=== PATIENT | male | born 1965 | race African-American/Black ===

== ENCOUNTER 2019-01-14 14:39 | Inpatient (IN) | payer MEDICAID ==
[~2019-01-14] VITALS: Ht 182.9 cm; Wt 171.5 kg
[2019-01-14 15:13] LABS: CHLORIDE 104 mEq/L (98-107)
[2019-01-14 15:14] LABS: HEMATOCRIT. 34.3 % (42.0-52.0); HEMOGLOBIN. 10.8 g/dL (14.0-18.0); MEAN CORPUSCULAR HEMOGLOBIN 26.6 pg (28.0-32.0); MEAN CORPUSCULAR VOLUME 84.1 fL (80.0-94.0); MEAN PLATELET VOLUME 8.8 fl (7.4-10.4); PLATELET 233 x1000/uL (130-400); RED BLOOD CELL COUNT 4.07 mill/uL (4.7-6.1); RED CELL DISTRIBUTION WIDTH 17.2 % (11.6-14.6)
[2019-01-14 15:16] LABS: PROTHROMBIN TIME 10.7 sec (9.6-11.0)
[2019-01-14 15:17] LABS: ETHANOL BLOOD < 10 mg/dL
[2019-01-14 15:20] LABS: LDL CHOLESTEROL 48 mg/dL (5-100)
[2019-01-14 15:43] LABS: BG BASE EXCESS -3.8 mmol/L (-2.0-2.0); BG CARBOXYHEMOGLOBIN 0.1 % (0.5-1.5); BG DEOXYHEMOGLOBIN 1.3 % (0.0-5.0); BG FRACTION INSPIRED OXYGEN 100; BG HCO3 ACT 24.7 mmol/L (22.0-26.0); BG METHEMOGLOBIN 0.2 % (0.0-1.5); BG OXYGEN SATURATION 98.7 % (92.0-98.5); BG OXYHEMOGLOBIN 98.4 % (94.0-97.0); BG PH 7.211 (7.350-7.450); BG PO2 164.8 mmHg (75.0-100.0); BG SAMPLE SITE RIGHT BRACHIAL; BG VENT MODE MASK - NRB
[2019-01-14 16:00] LABS: PLATELET ESTIMATE NORMAL
[2019-01-14] MEDS ORDERED: MORPHINE SULFATE 4 MG/ML CPJ (NOT FOR IM USE) IV ONE (16:30)
[2019-01-14 17:42] LABS: CLARITY URINE CLEAR (CLEAR); COLOR URINE YELLOW (YELLOW); KETONES URINE NEGATIVE (NEGATIVE); LEUKOCYTE ESTERASE URINE NEGATIVE (NEGATIVE); NITRITE URINE NEGATIVE (NEGATIVE); OCCULT BLOOD URINE NEGATIVE (NEGATIVE); PROTEIN URINE 1+ (NEGATIVE); SPECIFIC GRAVITY URINE 1.019 (1.005-1.030); UROBILINOGEN URINE 0.2 E.U./dL (0.2-1.0)
[2019-01-14 17:53] LABS: *COCAINE SCREEN URINE NEGATIVE (NEGATIVE); METHADONE URINE SCREEN NEGATIVE (NEGATIVE); OPIATES URINE SCREEN PRESUMTIVE POSITIVE (NEGATIVE); PHENCYCLIDINE URINE SCREEN NEGATIVE (NEGATIVE)
[2019-01-14 17:54] LABS: *AMPHETAMINES SCREEN URINE NEGATIVE (NEGATIVE); *BARBITURATES SCREEN URINE NEGATIVE (NEGATIVE); *BENZODIAZEPINES SCREEN URINE NEGATIVE (NEGATIVE); CANNABINOID URINE SCREEN NEGATIVE (NEGATIVE)
[2019-01-14] MEDS ORDERED: SODIUM CHLORIDE 0.9% 1000ML BAG (SEPSIS BOLUS) IV ONE (18:45)
[2019-01-14] MEDS ORDERED: LEVOFLOXACIN 750MG PREMIX 150 ML IV ONE (18:45)
[2019-01-14 19:02] LABS: BG BASE EXCESS 0.6 mmol/L (-2.0-2.0); BG CARBOXYHEMOGLOBIN 0.1 % (0.5-1.5); BG DEOXYHEMOGLOBIN 4.1 % (0.0-5.0); BG FRACTION INSPIRED OXYGEN 32; BG HCO3 ACT 28.7 mmol/L (22.0-26.0); BG METHEMOGLOBIN 0.1 % (0.0-1.5); BG OXYGEN SATURATION 95.9 % (92.0-98.5); BG OXYHEMOGLOBIN 95.7 % (94.0-97.0); BG PCO2 65.5 mmHg (35.0-45.0); BG PO2 89.3 mmHg (75.0-100.0); BG SAMPLE SITE RIGHT BRACHIAL; BG VENT MODE NASAL CANNULA
[2019-01-14] MEDS ORDERED: FUROSEMIDE 40MG/4ML VIAL IV ONE (19:30)
[2019-01-14] MEDS ORDERED: ASPIRIN 81MG TABLET PO ONE (19:30)
[2019-01-14] MEDS ORDERED: LACTULOSE 20G/30ML UDC PO ONE (19:30)
[2019-01-14] MEDS ORDERED: NITROGLYCERIN OINT 1GM/INCH UDPKT TD ONE (19:30)
[2019-01-14] MEDS ORDERED: KETOROLAC 15MG/ML VIAL IV ONE (21:15)
[2019-01-14] MEDS ORDERED: HYDRALAZINE 20MG/ML VIAL IV PRN (22:30)
[2019-01-14] MEDS ORDERED: GUAIFENESIN 200MG/10ML SUGAR FREE UDC PO PRN (22:30)
[2019-01-14] MEDS ORDERED: ACETAMINOPHEN 325MG TABLET PO PRN (22:30)
[2019-01-14] MEDS ORDERED: ONDANSETRON HCL 4MG/2ML INJ IV PRN (22:30)
[2019-01-14] MEDS ORDERED: MAGNESIUM/ALUMINUM HYDROXIDE/SIMETHICONE 30ML UDC PO PRN (22:30)
[2019-01-14] MEDS ORDERED: DOCUSATE SODIUM 100MG CAPSULE PO PRN (22:30)
[2019-01-14] MEDS ORDERED: LORAZEPAM 2MG/ML CPJ IV PRN (22:30)
[2019-01-14] MEDS ORDERED: ENOXAPARIN 40MG/0.4ML SYR SUBCUT SCH (22:30)
[2019-01-14] MEDS ORDERED: IPRATROPIUM/ALBUTEROL 0.5-3(2.5)MG/3ML NEB INH PRN (22:30)
[2019-01-14] MEDS: CLONIDINE 0.1MG TABLET PO PRN (23:28)
[2019-01-14] MEDS: HYDROMORPHONE HCL/PF 2MG/ML CPJ IV PRN (23:29)
[2019-01-15] VITALS (17 sets, daily range): BP systolic 87–175; BP diastolic 47–101
[2019-01-15] MEDS ORDERED: GABAPENTIN 400MG CAPSULE PO SCH
[2019-01-15] MEDS: ARIPIPRAZOLE 10MG TABLET PO SCH ×2 (00:31→20:36)
[2019-01-15] MEDS: QUETIAPINE FUMARATE 100MG TABLET PO SCH ×2 (00:32→20:36)
[2019-01-15] MEDS: GABAPENTIN 400MG CAPSULE PO SCH ×3 (06:18→17:32)
[2019-01-15] MEDS: SODIUM CHLORIDE 0.9% INJ 3ML FLUSH IVF SCH ×3 (06:20→20:36)
[2019-01-15 06:38] LABS: BASOPHILS % 0.2 % (0.0-2.0); EOSINOPHILS % 1.4 % (0.0-5.0); HEMATOCRIT. 29.3 % (42.0-52.0); HEMOGLOBIN. 9.4 g/dL (14.0-18.0); LYMPHOCYTES % 16.5 % (20.0-50.0); MEAN CORPUSCULAR HEMOGLOBIN 26.4 pg (28.0-32.0); MEAN CORPUSCULAR VOLUME 82.1 fL (80.0-94.0); MEAN PLATELET VOLUME 8.6 fl (7.4-10.4); MONOCYTES % 11.6 % (2.0-8.0); NEUTROPHILS % 70.3 % (40.0-76.0); PLATELET 203 x1000/uL (130-400); RED BLOOD CELL COUNT 3.57 mill/uL (4.7-6.1); RED CELL DISTRIBUTION WIDTH 16.9 % (11.6-14.6)
[2019-01-15] MEDS ORDERED: BISA10SU62 RC (06:54)
[2019-01-15] MEDS ORDERED: MULT-1146 PO (06:54)
[2019-01-15] MEDS ORDERED: HJ10 IJ (06:54)
[2019-01-15] MEDS ORDERED: FAMO40TA7 PO (06:54)
[2019-01-15] MEDS ORDERED: GABA-533 PO (06:54)
[2019-01-15] MEDS ORDERED: ASCO-339 PO (06:54)
[2019-01-15] MEDS ORDERED: MOM PO (06:54)
[2019-01-15] MEDS ORDERED: ARIP10TA16 PO (06:54)
[2019-01-15] MEDS ORDERED: METH500T PO (06:54)
[2019-01-15] MEDS ORDERED: CRAN400C PO (06:54)
[2019-01-15] MEDS ORDERED: OXYC-105 PO (06:54)
[2019-01-15] MEDS ORDERED: DOCU-150 PO (06:54)
[2019-01-15] MEDS ORDERED: OXYC-523 PO (06:54)
[2019-01-15] MEDS ORDERED: FERR325T6 PO (06:54)
[2019-01-15] MEDS ORDERED: DIPH25TA24 PO (06:54)
[2019-01-15] MEDS ORDERED: QUET400T PO (06:54)
[2019-01-15] MEDS ORDERED: IBUP-2030 PO (06:54)
[2019-01-15 07:28] LABS: CHLORIDE 106 mEq/L (98-107)
[2019-01-15 07:39] LABS: CREATINE KINASE 484 IU/L (39-308)
[2019-01-15 07:45] LABS: CREATINE KINASE MB FRACTION 3.4 ng/mL (0.5-3.6)
[2019-01-15] MEDS: HYDROMORPHONE HCL/PF 2MG/ML CPJ IV PRN (08:54)
[2019-01-15] MEDS: PIPERACILLIN/TAZ 3.375G PREMIX 50 ML IV SCH ×3 (09:00→20:35)
[2019-01-15] MEDS: ASPIRIN 81MG EC TABLET PO SCH (09:16)
[2019-01-15] MEDS: ENOXAPARIN 40MG/0.4ML SYR SUBCUT SCH ×2 (09:18→20:35)
[2019-01-15 10:03] LABS: T4 FREE 0.95 ng/dL (0.76-1.46)
[2019-01-15] MEDS: HYDROCODONE/ACETAMINOPHEN 10/325MG TABLET PO PRN ×2 (13:52→18:36)
[2019-01-15 16:16] LABS: CREATINE KINASE MB FRACTION 2.7 ng/mL (0.5-3.6)
[2019-01-15] MEDS: NYSTATIN POWDER 15GM TOP SCH ×2 (17:00→17:32)
[2019-01-15 17:04] LABS: BG BASE EXCESS 2.6 mmol/L (-2.0-2.0); BG CARBOXYHEMOGLOBIN 0.3 % (0.5-1.5); BG DEOXYHEMOGLOBIN 3.7 % (0.0-5.0); BG FRACTION INSPIRED OXYGEN 28; BG HCO3 ACT 29.2 mmol/L (22.0-26.0); BG METHEMOGLOBIN 0.2 % (0.0-1.5); BG OXYGEN SATURATION 96.3 % (92.0-98.5); BG OXYHEMOGLOBIN 95.8 % (94.0-97.0); BG PCO2 55.3 mmHg (35.0-45.0); BG PO2 91.7 mmHg (75.0-100.0); BG SAMPLE SITE LEFT RADIAL; BG TOTAL HEMOGLOBIN 10.3 g/dL (12.0-18.0); BG VENT MODE NASAL CANNULA
[2019-01-15] MEDS ORDERED: LIDOCAINE HCL/EPINEPHRINE 1%-EPI 1:100,000 50 ML VIAL INFIL ONE (20:00)
[2019-01-15] MEDS: FAMOTIDINE 20MG TABLET PO SCH (20:36)
[2019-01-15] MEDS ORDERED: LEVOFLOXACIN 500MG PREMIX 100 ML IV SCH (21:00)
[2019-01-16] VITALS (7 sets, daily range): BP systolic 115–173; BP diastolic 68–111
[2019-01-16] MEDS: GABAPENTIN 400MG CAPSULE PO SCH ×4 (00:17→17:58)
[2019-01-16] MEDS: HYDROCODONE/ACETAMINOPHEN 10/325MG TABLET PO PRN ×4 (00:30→17:59)
[2019-01-16] MEDS: PIPERACILLIN/TAZ 3.375G PREMIX 50 ML IV SCH ×4 (03:06→20:44)
[2019-01-16] MEDS: SODIUM CHLORIDE 0.9% INJ 3ML FLUSH IVF SCH ×3 (05:32→21:48)
[2019-01-16 07:22] LABS: BASOPHILS % 0.6 % (0.0-2.0); EOSINOPHILS % 5.3 % (0.0-5.0); HEMATOCRIT. 30.2 % (42.0-52.0); HEMOGLOBIN. 9.7 g/dL (14.0-18.0); LYMPHOCYTES % 31.3 % (20.0-50.0); MEAN CORPUSCULAR HEMOGLOBIN 26.7 pg (28.0-32.0); MEAN CORPUSCULAR VOLUME 82.8 fL (80.0-94.0); MEAN PLATELET VOLUME 8.4 fl (7.4-10.4); MONOCYTES % 12.2 % (2.0-8.0); NEUTROPHILS % 50.6 % (40.0-76.0); PLATELET 143 x1000/uL (130-400); RED BLOOD CELL COUNT 3.65 mill/uL (4.7-6.1); RED CELL DISTRIBUTION WIDTH 16.8 % (11.6-14.6)
[2019-01-16 07:44] LABS: CHLORIDE 106 mEq/L (98-107)
[2019-01-16] MEDS ORDERED: HYDROMORPHONE HCL/PF 2MG/ML CPJ IV NR (08:00)
[2019-01-16] MEDS: ENOXAPARIN 40MG/0.4ML SYR SUBCUT SCH ×2 (08:48→20:43)
[2019-01-16] MEDS: ASPIRIN 81MG EC TABLET PO SCH (08:48)
[2019-01-16] MEDS: CLONIDINE 0.1MG TABLET PO PRN (08:48)
[2019-01-16] MEDS: NYSTATIN POWDER 15GM TOP SCH ×3 (08:50→17:59)
[2019-01-16] MEDS: HYDROMORPHONE HCL/PF 2MG/ML CPJ IV PRN ×2 (13:11→20:44)
[2019-01-16] MEDS: FAMOTIDINE 20MG TABLET PO SCH (20:44)
[2019-01-16] MEDS: QUETIAPINE FUMARATE 100MG TABLET PO SCH (21:47)
[2019-01-16] MEDS: ARIPIPRAZOLE 10MG TABLET PO SCH (21:48)
[2019-01-17] VITALS (7 sets, daily range): BP systolic 116–175; BP diastolic 74–109
[2019-01-17] MEDS: GABAPENTIN 400MG CAPSULE PO SCH ×4 (00:22→17:56)
[2019-01-17] MEDS: PIPERACILLIN/TAZ 3.375G PREMIX 50 ML IV SCH ×4 (03:38→20:21)
[2019-01-17] MEDS: SODIUM CHLORIDE 0.9% INJ 3ML FLUSH IVF SCH ×3 (06:26→21:37)
[2019-01-17 07:07] LABS: HEMOGLOBIN. 9.8 g/dL (14.0-18.0); MEAN CORPUSCULAR HEMOGLOBIN 26.6 pg (28.0-32.0); MEAN CORPUSCULAR VOLUME 81.7 fL (80.0-94.0); MEAN PLATELET VOLUME 8.6 fl (7.4-10.4); PLATELET 196 x1000/uL (130-400); RED BLOOD CELL COUNT 3.67 mill/uL (4.7-6.1); RED CELL DISTRIBUTION WIDTH 16.7 % (11.6-14.6)
[2019-01-17 07:26] LABS: CHLORIDE 106 mEq/L (98-107)
[2019-01-17] MEDS: HYDROMORPHONE HCL/PF 2MG/ML CPJ IV PRN ×3 (07:26→20:23)
[2019-01-17] MEDS: ENOXAPARIN 40MG/0.4ML SYR SUBCUT SCH ×2 (08:47→20:22)
[2019-01-17] MEDS: ASPIRIN 81MG EC TABLET PO SCH (08:47)
[2019-01-17] MEDS: NYSTATIN POWDER 15GM TOP SCH ×3 (09:45→16:55)
[2019-01-17] MEDS: HYDROCODONE/ACETAMINOPHEN 10/325MG TABLET PO PRN ×2 (10:47→17:14)
[2019-01-17] MEDS: CLONIDINE 0.1MG TABLET PO PRN (13:56)
[2019-01-17 20:19] LABS: PLATELET ESTIMATE NORMAL
[2019-01-17] MEDS: ARIPIPRAZOLE 10MG TABLET PO SCH (20:21)
[2019-01-17] MEDS: FAMOTIDINE 20MG TABLET PO SCH (20:21)
[2019-01-17] MEDS: QUETIAPINE FUMARATE 100MG TABLET PO SCH (20:22)
[2019-01-18] VITALS: BP 127/78
[2019-01-18] MEDS: GABAPENTIN 400MG CAPSULE PO SCH ×4 (00:27→17:37)
[2019-01-18] MEDS: HYDROCODONE/ACETAMINOPHEN 10/325MG TABLET PO PRN ×5 (00:28→21:00)
[2019-01-18] MEDS: HYDROMORPHONE HCL/PF 2MG/ML CPJ IV PRN ×4 (02:31→22:09)
[2019-01-18] MEDS: PIPERACILLIN/TAZ 3.375G PREMIX 50 ML IV SCH ×4 (03:14→20:58)
[2019-01-18 04:00] VITALS: BP 127/72
[2019-01-18] MEDS: SODIUM CHLORIDE 0.9% INJ 3ML FLUSH IVF SCH ×3 (05:04→21:10)
[2019-01-18 08:00] VITALS: BP 117/70
[2019-01-18] MEDS: NYSTATIN POWDER 15GM TOP SCH ×3 (09:20→17:37)
[2019-01-18] MEDS: ENOXAPARIN 40MG/0.4ML SYR SUBCUT SCH ×2 (09:20→20:59)
[2019-01-18] MEDS: ASPIRIN 81MG EC TABLET PO SCH (09:22)
[2019-01-18 12:00] VITALS: BP 170/110
[2019-01-18 16:00] VITALS: BP 128/75
[2019-01-18 20:06] VITALS: BP 155/95
[2019-01-18] MEDS: QUETIAPINE FUMARATE 100MG TABLET PO SCH (20:59)
[2019-01-18] MEDS: FAMOTIDINE 20MG TABLET PO SCH (20:59)
[2019-01-18] MEDS: ARIPIPRAZOLE 10MG TABLET PO SCH (20:59)
[2019-01-19] MEDS: GABAPENTIN 400MG CAPSULE PO SCH ×4 (00:13→17:08)
[2019-01-19] MEDS: PIPERACILLIN/TAZ 3.375G PREMIX 50 ML IV SCH ×4 (02:41→20:05)
[2019-01-19] MEDS: HYDROCODONE/ACETAMINOPHEN 10/325MG TABLET PO PRN ×4 (03:37→21:46)
[2019-01-19 03:56] VITALS: BP 133/84
[2019-01-19] MEDS: HYDROMORPHONE HCL/PF 2MG/ML CPJ IV PRN ×3 (05:16→20:07)
[2019-01-19] MEDS: SODIUM CHLORIDE 0.9% INJ 3ML FLUSH IVF SCH ×3 (05:33→22:32)
[2019-01-19 08:08] VITALS: BP 132/84
[2019-01-19] MEDS: ENOXAPARIN 40MG/0.4ML SYR SUBCUT SCH ×2 (08:22→20:20)
[2019-01-19] MEDS: NYSTATIN POWDER 15GM TOP SCH ×3 (08:22→17:08)
[2019-01-19] MEDS: ASPIRIN 81MG EC TABLET PO SCH (08:22)
[2019-01-19 12:06] VITALS: BP 126/78
[2019-01-19 16:15] VITALS: BP 140/98
[2019-01-19] MEDS: QUETIAPINE FUMARATE 100MG TABLET PO SCH (20:05)
[2019-01-19] MEDS: FAMOTIDINE 20MG TABLET PO SCH (20:05)
[2019-01-19] MEDS: ARIPIPRAZOLE 10MG TABLET PO SCH (20:05)
[2019-01-19 20:18] VITALS: BP 163/97
[2019-01-20] VITALS: BP 178/101
[2019-01-20] MEDS: GABAPENTIN 400MG CAPSULE PO SCH ×5 (00:48→23:09)
[2019-01-20] MEDS: CLONIDINE 0.1MG TABLET PO PRN (00:49)
[2019-01-20] MEDS: HYDROCODONE/ACETAMINOPHEN 10/325MG TABLET PO PRN ×4 (01:53→19:48)
[2019-01-20] MEDS: PIPERACILLIN/TAZ 3.375G PREMIX 50 ML IV SCH ×4 (02:44→20:56)
[2019-01-20 04:00] VITALS: BP 147/93
[2019-01-20] MEDS: HYDROMORPHONE HCL/PF 2MG/ML CPJ IV PRN ×4 (04:38→23:09)
[2019-01-20] MEDS: SODIUM CHLORIDE 0.9% INJ 3ML FLUSH IVF SCH ×3 (05:19→21:03)
[2019-01-20] MEDS: ENOXAPARIN 40MG/0.4ML SYR SUBCUT SCH ×2 (09:13→20:57)
[2019-01-20] MEDS: ASPIRIN 81MG EC TABLET PO SCH (09:13)
[2019-01-20] MEDS: NYSTATIN POWDER 15GM TOP SCH ×3 (09:14→18:46)
[2019-01-20 12:04] VITALS: BP 134/88
[2019-01-20 16:18] VITALS: BP 134/82
[2019-01-20 20:00] VITALS: BP 120/80
[2019-01-20] MEDS: FAMOTIDINE 20MG TABLET PO SCH (20:57)
[2019-01-20] MEDS: QUETIAPINE FUMARATE 100MG TABLET PO SCH (20:57)
[2019-01-20] MEDS: ARIPIPRAZOLE 10MG TABLET PO SCH (20:57)
[2019-01-20 23:59] VITALS: BP 119/81
[2019-01-21] MEDS: HYDROCODONE/ACETAMINOPHEN 10/325MG TABLET PO PRN ×5 (01:46→22:29)
[2019-01-21] MEDS: PIPERACILLIN/TAZ 3.375G PREMIX 50 ML IV SCH ×4 (02:51→20:37)
[2019-01-21 04:00] VITALS: BP 128/61
[2019-01-21] MEDS: HYDROMORPHONE HCL/PF 2MG/ML CPJ IV PRN ×4 (04:57→23:54)
[2019-01-21] MEDS: GABAPENTIN 400MG CAPSULE PO SCH ×3 (05:50→18:05)
[2019-01-21] MEDS: SODIUM CHLORIDE 0.9% INJ 3ML FLUSH IVF SCH ×3 (05:52→22:36)
[2019-01-21 08:00] VITALS: BP 117/68
[2019-01-21] MEDS: ASPIRIN 81MG EC TABLET PO SCH (08:23)
[2019-01-21] MEDS: ENOXAPARIN 40MG/0.4ML SYR SUBCUT SCH ×2 (08:24→21:57)
[2019-01-21] MEDS: NYSTATIN POWDER 15GM TOP SCH ×3 (08:26→17:22)
[2019-01-21 12:00] VITALS: BP 117/75
[2019-01-21 16:00] VITALS: BP 120/69
[2019-01-21 20:00] VITALS: BP 158/94
[2019-01-21] MEDS: ARIPIPRAZOLE 10MG TABLET PO SCH (21:55)
[2019-01-21] MEDS: QUETIAPINE FUMARATE 100MG TABLET PO SCH (21:55)
[2019-01-21] MEDS: FAMOTIDINE 20MG TABLET PO SCH (21:56)
[2019-01-21 23:50] VITALS: BP 138/99
[2019-01-22] MEDS: GABAPENTIN 400MG CAPSULE PO SCH ×4 (00:21→18:18)
[2019-01-22] MEDS: HYDROCODONE/ACETAMINOPHEN 10/325MG TABLET PO PRN ×5 (02:55→22:05)
[2019-01-22] MEDS: PIPERACILLIN/TAZ 3.375G PREMIX 50 ML IV SCH ×2 (03:00→08:14)
[2019-01-22 04:03] VITALS: BP 162/62
[2019-01-22] MEDS: SODIUM CHLORIDE 0.9% INJ 3ML FLUSH IVF SCH ×3 (05:58→21:51)
[2019-01-22] MEDS: HYDROMORPHONE HCL/PF 2MG/ML CPJ IV PRN ×2 (05:58→18:19)
[2019-01-22 08:00] VITALS: BP 126/86
[2019-01-22] MEDS: ASPIRIN 81MG EC TABLET PO SCH (08:14)
[2019-01-22] MEDS: ENOXAPARIN 40MG/0.4ML SYR SUBCUT SCH ×2 (08:18→21:49)
[2019-01-22] MEDS: NYSTATIN POWDER 15GM TOP SCH ×3 (08:19→17:13)
[2019-01-22 12:00] VITALS: BP 141/89
[2019-01-22 16:00] VITALS: BP 144/94
[2019-01-22 20:00] VITALS: BP 148/95
[2019-01-22] MEDS: QUETIAPINE FUMARATE 100MG TABLET PO SCH (21:44)
[2019-01-22] MEDS: ARIPIPRAZOLE 10MG TABLET PO SCH (21:44)
[2019-01-22] MEDS: FAMOTIDINE 20MG TABLET PO SCH (21:45)
[2019-01-22 23:51] VITALS: BP 138/87
[2019-01-23] MEDS: HYDROMORPHONE HCL/PF 2MG/ML CPJ IV PRN ×4 (00:20→20:47)
[2019-01-23] MEDS: GABAPENTIN 400MG CAPSULE PO SCH ×4 (00:56→17:20)
[2019-01-23 04:00] VITALS: BP 126/84
[2019-01-23] MEDS: SODIUM CHLORIDE 0.9% INJ 3ML FLUSH IVF SCH ×3 (06:37→20:44)
[2019-01-23] MEDS: HYDROCODONE/ACETAMINOPHEN 10/325MG TABLET PO PRN ×3 (06:39→17:20)
[2019-01-23 08:12] VITALS: BP 120/65
[2019-01-23] MEDS: ASPIRIN 81MG EC TABLET PO SCH (09:20)
[2019-01-23] MEDS: ENOXAPARIN 40MG/0.4ML SYR SUBCUT SCH ×2 (09:21→20:44)
[2019-01-23] MEDS: NYSTATIN POWDER 15GM TOP SCH ×3 (09:29→17:23)
[2019-01-23 11:46] VITALS: BP 114/70
[2019-01-23 16:12] VITALS: BP 122/78
[2019-01-23 19:51] VITALS: BP 139/63
[2019-01-23] MEDS: ARIPIPRAZOLE 10MG TABLET PO SCH (20:43)
[2019-01-23] MEDS: FAMOTIDINE 20MG TABLET PO SCH (20:43)
[2019-01-23] MEDS: QUETIAPINE FUMARATE 100MG TABLET PO SCH (20:43)
[2019-01-24] VITALS (7 sets, daily range): BP systolic 104–158; BP diastolic 38–92
[2019-01-24] MEDS: GABAPENTIN 400MG CAPSULE PO SCH ×5 (00:15→23:17)
[2019-01-24] MEDS: HYDROCODONE/ACETAMINOPHEN 10/325MG TABLET PO PRN ×5 (00:15→23:57)
[2019-01-24] MEDS: HYDROMORPHONE HCL/PF 2MG/ML CPJ IV PRN ×4 (03:40→20:20)
[2019-01-24] MEDS: SODIUM CHLORIDE 0.9% INJ 3ML FLUSH IVF SCH ×4 (05:26→21:05)
[2019-01-24] MEDS: ASPIRIN 81MG EC TABLET PO SCH (08:58)
[2019-01-24] MEDS: ENOXAPARIN 40MG/0.4ML SYR SUBCUT SCH ×2 (09:02→20:25)
[2019-01-24] MEDS: NYSTATIN POWDER 15GM TOP SCH ×3 (09:03→17:00)
[2019-01-24 12:43] LABS: CHLORIDE 109 mEq/L (98-107)
[2019-01-24] MEDS: FAMOTIDINE 20MG TABLET PO SCH (20:23)
[2019-01-24] MEDS: ARIPIPRAZOLE 10MG TABLET PO SCH (20:23)
[2019-01-24] MEDS: QUETIAPINE FUMARATE 100MG TABLET PO SCH (20:24)
[2019-01-25 00:43] VITALS: BP 134/73
[2019-01-25] MEDS: HYDROMORPHONE HCL/PF 2MG/ML CPJ IV PRN ×5 (02:31→20:49)
[2019-01-25 04:02] VITALS: BP 104/49
[2019-01-25] MEDS: SODIUM CHLORIDE 0.9% INJ 3ML FLUSH IVF SCH ×3 (05:50→20:56)
[2019-01-25] MEDS: GABAPENTIN 400MG CAPSULE PO SCH ×4 (05:50→23:35)
[2019-01-25 08:00] VITALS: BP 121/52
[2019-01-25] MEDS: ENOXAPARIN 40MG/0.4ML SYR SUBCUT SCH ×2 (08:16→20:55)
[2019-01-25] MEDS: ASPIRIN 81MG EC TABLET PO SCH (08:16)
[2019-01-25] MEDS: HYDROCODONE/ACETAMINOPHEN 10/325MG TABLET PO PRN ×4 (08:17→23:35)
[2019-01-25] MEDS: NYSTATIN POWDER 15GM TOP SCH ×2 (08:18→12:24)
[2019-01-25 12:00] VITALS: BP 139/73
[2019-01-25 16:00] VITALS: BP 102/52
[2019-01-25 19:25] LABS: CHLORIDE 106 mEq/L (98-107)
[2019-01-25 20:00] VITALS: BP 112/56
[2019-01-25] MEDS: ARIPIPRAZOLE 10MG TABLET PO SCH (20:54)
[2019-01-25] MEDS: QUETIAPINE FUMARATE 100MG TABLET PO SCH (20:54)
[2019-01-25] MEDS: FAMOTIDINE 20MG TABLET PO SCH (20:55)
[2019-01-26] VITALS (7 sets, daily range): BP systolic 90–137; BP diastolic 57–74
[2019-01-26] MEDS: HYDROMORPHONE HCL/PF 2MG/ML CPJ IV PRN ×5 (02:48→21:52)
[2019-01-26] MEDS: HYDROCODONE/ACETAMINOPHEN 10/325MG TABLET PO PRN ×4 (04:26→19:09)
[2019-01-26] MEDS: GABAPENTIN 400MG CAPSULE PO SCH ×3 (06:50→19:08)
[2019-01-26] MEDS: SODIUM CHLORIDE 0.9% INJ 3ML FLUSH IVF SCH ×2 (07:09→14:00)
[2019-01-26] MEDS: ENOXAPARIN 40MG/0.4ML SYR SUBCUT SCH ×2 (08:55→22:05)
[2019-01-26] MEDS: ASPIRIN 81MG EC TABLET PO SCH (08:55)
[2019-01-26] MEDS ORDERED: MAGNESIUM 2 G PREMIX 50 ML IV NR (09:00)
[2019-01-26 10:38] LABS: BASOPHILS % 0.6 % (0.0-2.0); EOSINOPHILS % 3.5 % (0.0-5.0); HEMATOCRIT. 34.8 % (42.0-52.0); HEMOGLOBIN. 11.2 g/dL (14.0-18.0); LYMPHOCYTES % 34.7 % (20.0-50.0); MEAN CORPUSCULAR HEMOGLOBIN 26.4 pg (28.0-32.0); MEAN PLATELET VOLUME 9.4 fl (7.4-10.4); MONOCYTES % 12.3 % (2.0-8.0); NEUTROPHILS % 48.9 % (40.0-76.0); PLATELET 154 x1000/uL (130-400); RED BLOOD CELL COUNT 4.24 mill/uL (4.7-6.1); RED CELL DISTRIBUTION WIDTH 16.5 % (11.6-14.6)
[2019-01-26] MEDS ORDERED: AMIODARONE HCL 150 MG in DEXT 5% WATER 97 ML IV NR (18:30)
[2019-01-26] MEDS: ARIPIPRAZOLE 10MG TABLET PO SCH (22:05)
[2019-01-26] MEDS: QUETIAPINE FUMARATE 100MG TABLET PO SCH (22:06)
[2019-01-26] MEDS: FAMOTIDINE 20MG TABLET PO SCH (22:06)
[2019-01-27] VITALS (7 sets, daily range): BP systolic 95–136; BP diastolic 46–81
[2019-01-27] MEDS: SODIUM CHLORIDE 0.9% INJ 3ML FLUSH IVF SCH ×4 (00:51→21:19)
[2019-01-27] MEDS: HYDROCODONE/ACETAMINOPHEN 10/325MG TABLET PO PRN ×4 (00:54→20:15)
[2019-01-27] MEDS: GABAPENTIN 400MG CAPSULE PO SCH ×4 (00:54→17:11)
[2019-01-27] MEDS: HYDROMORPHONE HCL/PF 2MG/ML CPJ IV PRN ×3 (02:20→10:58)
[2019-01-27 06:27] LABS: HEMATOCRIT. 34.9 % (42.0-52.0); HEMOGLOBIN. 11.4 g/dL (14.0-18.0); MEAN CORPUSCULAR VOLUME 82.6 fL (80.0-94.0); MEAN PLATELET VOLUME 9.4 fl (7.4-10.4); PLATELET 147 x1000/uL (130-400); RED BLOOD CELL COUNT 4.23 mill/uL (4.7-6.1); RED CELL DISTRIBUTION WIDTH 16.5 % (11.6-14.6)
[2019-01-27 07:15] LABS: CHLORIDE 110 mEq/L (98-107)
[2019-01-27] MEDS: ASPIRIN 81MG EC TABLET PO SCH (08:32)
[2019-01-27] MEDS: ENOXAPARIN 40MG/0.4ML SYR SUBCUT SCH ×2 (08:33→20:15)
[2019-01-27] MEDS ORDERED: AMIODARONE HCL 200 MG TABLET PO SCH ×2 (09:00)
[2019-01-27 12:19] LABS: *AMPHETAMINES SCREEN URINE NEGATIVE (NEGATIVE); *COCAINE SCREEN URINE NEGATIVE (NEGATIVE); CANNABINOID URINE SCREEN NEGATIVE (NEGATIVE); METHADONE URINE SCREEN NEGATIVE (NEGATIVE); OPIATES URINE SCREEN PRESUMTIVE POSITIVE (NEGATIVE); PHENCYCLIDINE URINE SCREEN NEGATIVE (NEGATIVE)
[2019-01-27 12:20] LABS: *BARBITURATES SCREEN URINE NEGATIVE (NEGATIVE); *BENZODIAZEPINES SCREEN URINE NEGATIVE (NEGATIVE)
[2019-01-27 15:25] LABS: PLATELET ESTIMATE NORMAL
[2019-01-27] MEDS ORDERED: POTASSIUM CHLORIDE 20MEQ TABLET SR PO NR (16:00)
[2019-01-27] MEDS: MORPHINE SULFATE 4 MG/ML CPJ (NOT FOR IM USE) IV PRN ×2 (17:10→21:19)
[2019-01-27] MEDS: ARIPIPRAZOLE 10MG TABLET PO SCH (20:13)
[2019-01-27] MEDS: FAMOTIDINE 20MG TABLET PO SCH (20:14)
[2019-01-28] MEDS: MORPHINE SULFATE 4 MG/ML CPJ (NOT FOR IM USE) IV PRN ×6 (00:24→23:11)
[2019-01-28] MEDS: GABAPENTIN 400MG CAPSULE PO SCH ×5 (00:24→23:10)
[2019-01-28] MEDS: HYDROCODONE/ACETAMINOPHEN 10/325MG TABLET PO PRN ×4 (00:51→17:05)
[2019-01-28 03:56] VITALS: BP 128/73
[2019-01-28] MEDS: SODIUM CHLORIDE 0.9% INJ 3ML FLUSH IVF SCH ×3 (05:02→20:47)
[2019-01-28 08:00] VITALS: BP 149/88
[2019-01-28] MEDS: ENOXAPARIN 40MG/0.4ML SYR SUBCUT SCH ×2 (09:15→20:47)
[2019-01-28] MEDS: ASPIRIN 81MG EC TABLET PO SCH (09:15)
[2019-01-28 12:00] VITALS: BP 132/66
[2019-01-28 16:00] VITALS: BP 116/59
[2019-01-28 20:00] VITALS: BP 172/100
[2019-01-28] MEDS: FAMOTIDINE 20MG TABLET PO SCH (20:46)
[2019-01-28] MEDS: CLONIDINE 0.1MG TABLET PO PRN (20:46)
[2019-01-28] MEDS: ARIPIPRAZOLE 10MG TABLET PO SCH (20:46)
[2019-01-29] VITALS: BP 152/88
[2019-01-29] MEDS: HYDROCODONE/ACETAMINOPHEN 10/325MG TABLET PO PRN ×4 (01:43→20:17)
[2019-01-29 04:00] VITALS: BP 150/70
[2019-01-29] MEDS: SODIUM CHLORIDE 0.9% INJ 3ML FLUSH IVF SCH ×3 (06:02→22:36)
[2019-01-29] MEDS: GABAPENTIN 400MG CAPSULE PO SCH ×4 (06:02→23:49)
[2019-01-29 07:11] LABS: CHLORIDE 106 mEq/L (98-107)
[2019-01-29 08:00] VITALS: BP 145/75
[2019-01-29] MEDS: ASPIRIN 81MG EC TABLET PO SCH (08:43)
[2019-01-29] MEDS: ENOXAPARIN 40MG/0.4ML SYR SUBCUT SCH ×2 (08:43→20:18)
[2019-01-29 12:25] VITALS: BP 145/75
[2019-01-29] MEDS: MORPHINE SULFATE 4 MG/ML CPJ (NOT FOR IM USE) IV PRN ×3 (12:58→21:52)
[2019-01-29 16:42] VITALS: BP 130/85
[2019-01-29 19:47] VITALS: BP 139/52
[2019-01-29] MEDS: FAMOTIDINE 20MG TABLET PO SCH (20:16)
[2019-01-29] MEDS: ARIPIPRAZOLE 10MG TABLET PO SCH (20:16)
[2019-01-30 00:10] VITALS: BP 124/62
[2019-01-30] MEDS: MORPHINE SULFATE 4 MG/ML CPJ (NOT FOR IM USE) IV PRN ×3 (01:19→09:33)
[2019-01-30 04:00] VITALS: BP 168/76
[2019-01-30] MEDS: SODIUM CHLORIDE 0.9% INJ 3ML FLUSH IVF SCH ×3 (05:51→22:19)
[2019-01-30] MEDS: GABAPENTIN 400MG CAPSULE PO SCH ×3 (05:51→17:22)
[2019-01-30 08:26] VITALS: BP 112/59
[2019-01-30] MEDS: ENOXAPARIN 40MG/0.4ML SYR SUBCUT SCH ×2 (08:37→20:08)
[2019-01-30] MEDS: ASPIRIN 81MG EC TABLET PO SCH (08:37)
[2019-01-30] MEDS: HYDROCODONE/ACETAMINOPHEN 10/325MG TABLET PO PRN ×3 (12:37→20:09)
[2019-01-30 15:59] VITALS: BP 105/72
[2019-01-30 20:00] VITALS: BP 139/98
[2019-01-30] MEDS: FAMOTIDINE 20MG TABLET PO SCH (20:08)
[2019-01-30] MEDS: ARIPIPRAZOLE 10MG TABLET PO SCH (20:08)
[2019-01-31] VITALS: BP 150/89
[2019-01-31] MEDS: GABAPENTIN 400MG CAPSULE PO SCH ×5 (00:06→23:41)
[2019-01-31] MEDS: HYDROCODONE/ACETAMINOPHEN 10/325MG TABLET PO PRN ×7 (00:09→23:42)
[2019-01-31 04:00] VITALS: BP 153/95
[2019-01-31] MEDS: SODIUM CHLORIDE 0.9% INJ 3ML FLUSH IVF SCH ×3 (05:18→23:54)
[2019-01-31 08:00] VITALS: BP 159/101
[2019-01-31] MEDS: ENOXAPARIN 40MG/0.4ML SYR SUBCUT SCH ×2 (08:46→20:46)
[2019-01-31] MEDS: ASPIRIN 81MG EC TABLET PO SCH (08:46)
[2019-01-31 12:00] VITALS: BP 111/62
[2019-01-31 16:00] VITALS: BP_SYST 104; BP_SYST 123; BP_DIAS 64; BP_DIAS 82
[2019-01-31] MEDS ORDERED: MORPHINE SULFATE 4 MG/ML CPJ (NOT FOR IM USE) IV NR (17:15)
[2019-01-31 20:00] VITALS: BP 132/68
[2019-01-31] MEDS: ARIPIPRAZOLE 10MG TABLET PO SCH (20:45)
[2019-01-31] MEDS: FAMOTIDINE 20MG TABLET PO SCH (20:45)
[2019-02-01] VITALS: BP 136/75
[2019-02-01] MEDS: HYDROCODONE/ACETAMINOPHEN 10/325MG TABLET PO PRN ×5 (03:26→20:18)
[2019-02-01 04:00] VITALS: BP 132/77
[2019-02-01] MEDS: SODIUM CHLORIDE 0.9% INJ 3ML FLUSH IVF SCH ×3 (06:03→21:01)
[2019-02-01] MEDS: GABAPENTIN 400MG CAPSULE PO SCH (06:03)
[2019-02-01 08:01] VITALS: BP 132/86
[2019-02-01] MEDS: ENOXAPARIN 40MG/0.4ML SYR SUBCUT SCH ×2 (08:12→20:27)
[2019-02-01] MEDS: ASPIRIN 81MG EC TABLET PO SCH (08:12)
[2019-02-01] MEDS ORDERED: TRAMADOL 50MG TABLET PO PRN (10:45)
[2019-02-01 12:00] VITALS: BP 132/80
[2019-02-01] MEDS: GABAPENTIN 300MG CAPSULE PO SCH ×3 (12:24→23:04)
[2019-02-01 16:00] VITALS: BP 151/97
[2019-02-01] MEDS: TRAMADOL 50MG TABLET PO SCH (16:19)
[2019-02-01 20:00] VITALS: BP 136/67
[2019-02-01] MEDS: ARIPIPRAZOLE 10MG TABLET PO SCH (20:18)
[2019-02-01] MEDS: FAMOTIDINE 20MG TABLET PO SCH (20:18)
[2019-02-02] VITALS: BP 150/94
[2019-02-02] MEDS: HYDROCODONE/ACETAMINOPHEN 10/325MG TABLET PO PRN ×6 (00:17→21:28)
[2019-02-02 04:00] VITALS: BP 154/98
[2019-02-02] MEDS: GABAPENTIN 300MG CAPSULE PO SCH ×3 (05:06→18:11)
[2019-02-02] MEDS: SODIUM CHLORIDE 0.9% INJ 3ML FLUSH IVF SCH ×3 (05:08→22:00)
[2019-02-02 08:00] VITALS: BP 160/104
[2019-02-02] MEDS: ASPIRIN 81MG EC TABLET PO SCH (09:10)
[2019-02-02] MEDS: TRAMADOL 50MG TABLET PO SCH ×2 (09:11→18:12)
[2019-02-02] MEDS: ENOXAPARIN 40MG/0.4ML SYR SUBCUT SCH ×2 (09:11→21:29)
[2019-02-02 12:02] VITALS: BP 173/97
[2019-02-02] MEDS: CLONIDINE 0.1MG TABLET PO PRN (13:07)
[2019-02-02 16:00] VITALS: BP 158/104
[2019-02-02 20:03] VITALS: BP 163/115
[2019-02-02] MEDS: ARIPIPRAZOLE 10MG TABLET PO SCH (21:29)
[2019-02-02] MEDS: FAMOTIDINE 20MG TABLET PO SCH (21:30)
[2019-02-03 00:12] VITALS: BP 142/81
[2019-02-03] MEDS: GABAPENTIN 300MG CAPSULE PO SCH ×4 (00:37→18:16)
[2019-02-03] MEDS: HYDROCODONE/ACETAMINOPHEN 10/325MG TABLET PO PRN ×4 (01:45→14:26)
[2019-02-03 04:03] VITALS: BP 161/91
[2019-02-03] MEDS: SODIUM CHLORIDE 0.9% INJ 3ML FLUSH IVF SCH ×2 (05:50→13:06)
[2019-02-03 07:06] LABS: HEMATOCRIT. 34.5 % (42.0-52.0); HEMOGLOBIN. 11.3 g/dL (14.0-18.0); MEAN CORPUSCULAR VOLUME 82.2 fL (80.0-94.0); MEAN PLATELET VOLUME 10.6 fl (7.4-10.4); PLATELET 143 x1000/uL (130-400); RED CELL DISTRIBUTION WIDTH 16.1 % (11.6-14.6)
[2019-02-03] MEDS: ASPIRIN 81MG EC TABLET PO SCH (08:46)
[2019-02-03] MEDS: TRAMADOL 50MG TABLET PO SCH ×2 (08:46→17:00)
[2019-02-03] MEDS: ENOXAPARIN 40MG/0.4ML SYR SUBCUT SCH (08:47)
[2019-02-03 11:56] VITALS: BP 154/107
[2019-02-03 14:59] LABS: PLATELET ESTIMATE NORMAL
[2019-02-03 16:36] VITALS: BP 151/99
[2019-02-03 17:26] VITALS: BP 151/99
== END 2019-02-03 20:30 | disposition home health service (06) | DRG 793 ==
LOC: ER 14:39 → 3WST 19:30 → EDBEDREQ 19:33 → EDBEDREQTM 19:33 → ENRESERV 21:40 → SUPCPDRO 22:09 → 6WST 01-16 01:34 → 8WST 01-30 19:15 → 6WST 02-02 08:40
PROVIDERS: ADMIT Internal Medicine; ATTEND Internal Medicine
PROC: 0KBS0ZZ Excision of Right Lower Leg Muscle, Open Approach (ICD-10-PCS; principal; 2019-01-16)
PROC: 0JBP0ZZ Excision of Left Lower Leg Subcutaneous Tissue and Fascia, Open Approach (ICD-10-PCS; 2019-01-16)
DX: T40.1X2A Poisoning by heroin, intentional self-harm, initial encounter (principal); J96.02 Acute respiratory failure with hypercapnia; I47.2 Ventricular tachycardia; G92 Toxic encephalopathy; E46 Unspecified protein-calorie malnutrition; E87.2 Acidosis; I11.0 Hypertensive heart disease with heart failure; L03.115 Cellulitis of right lower limb; E66.01 Morbid (severe) obesity due to excess calories; I50.32 Chronic diastolic (congestive) heart failure; R65.10 Systemic inflammatory response syndrome (SIRS) of non-infectious origin without acute organ dysfunction; L03.116 Cellulitis of left lower limb; B19.20 Unspecified viral hepatitis C without hepatic coma; E78.00 Pure hypercholesterolemia, unspecified; L30.4 Erythema intertrigo; F11.10 Opioid abuse, uncomplicated; D64.9 Anemia, unspecified; E78.5 Hyperlipidemia, unspecified; N39.0 Urinary tract infection, site not specified; I87.2 Venous insufficiency (chronic) (peripheral); I25.10 Atherosclerotic heart disease of native coronary artery without angina pectoris; F32.9 Major depressive disorder, single episode, unspecified; R45.851 Suicidal ideations; Y92.89 Other specified places as the place of occurrence of the external cause; Z68.43 Body mass index [BMI] 50.0-59.9, adult; Z71.3 Dietary counseling and surveillance; Z87.891 Personal history of nicotine dependence
CPT/HCPCS: 36415; 36600; 71045; 80048; 80061; 80305; 80307; 80320; 80329; 82140; 82375; 82550; 82553; 82805; 82962; 83036; 83605; 83721; 83735; 83880; 84132; 84134; 84439; 84443; 84484; 85379; 93005; 93306; 93970; 96365; 96375; 97116; 97162; 97530; 99285; A6261; C1893; J0282; J0360; J1170; J1650; J1885; J1940; J1956; J2270; J2543; J3475; J3490; J7030; J7040; J7050; J7060; G0480